=== PATIENT | male | born 1985 | race Caucasian/White ===

== ENCOUNTER 2019-11-04 05:41 | Emergency (ER) | payer BC ==
[~2019-11-04] VITALS: Ht 185.4 cm; Wt 99.8 kg
[~2019-11-04 05:41] MED LIST: CEPHALEXIN500 M1 PO; Orphenadrine C100 MG PO; PERCOCET 325 MG1 TA2 PO; PREDNISONE50 MG PO; TRAMADOL HCL50 MG PO
[2019-11-04 06:15] LABS: BASO # 0.1 10*3/uL (0.0-0.1); EOS # 0.2 10*3/uL (0.0-0.4); EOS % 2.7 % (1.0-4.0); HEMATOCRIT 45.2 % (42.0-52.0); LYMPH # 2.2 10*3/uL (1.3-4.4); LYMPH % 30.3 % (27.0-41.0); MEAN CELL VOLUME 89.5 fl (80.0-94.0); MEAN CORPUSCULAR HGB 30.3 pg (27.0-31.0); MEAN CORPUSCULAR HGB CONC 33.8 g/dl (33.0-37.0); MONO # 0.5 10*3/uL (0.1-1.0); MONO % 6.4 % (3.0-9.0); NEUT # 4.4 10*3/uL (2.3-7.9); NEUT % 59.3 % (47.0-73.0); PLATELET COUNT AUTOMATED 253 10*3/uL (130-400); RED BLOOD COUNT 5.05 10*6/uL (4.50-5.90); RED CELL DISTRI WIDTH 12.6 % (0-14.5); WHITE BLOOD COUNT 7.3 10*3/uL (4.8-10.8)
[2019-11-04 06:29] LABS: ALBUMIN 4.1 gm/dl (3.1-4.5); ALKALINE PHOSPHATASE 73 U/L (45-117); BUN 18 mg/dl (7-24); CHLORIDE 103 mmol/L (98-107); CREATININE 1.25 mg/dL (0.70-1.30); SGOT/AST 15 IU/L (3-35); SGPT/ALT 31 U/L (12-78); SODIUM 137 mmol/L (136-145); TOTAL PROTEIN 7.9 gm/dL (6.4-8.2)
[2019-11-04 08:01] LABS: BILIRUBIN NEGATIVE (NEGATIVE); BLOOD 3+ (NEGATIVE); CLARITY SL CLOUDY (CLEAR); COLOR YELLOW (YELLOW); GLUCOSE NEGATIVE (NEGATIVE); KETONE NEGATIVE (NEGATIVE); SPECIFIC GRAVITY 1.015 (1.005-1.030)
[2019-11-04 08:02] LABS: LEUKO ESTERASE TRACE (NEGATIVE); NITRITE NEGATIVE (NEGATIVE); RBC TNTC rbc/hpf (0-2); UROBILINOGEN 0.2 E.U./dl (0.2-1.0)
[2019-11-04] MEDS ORDERED: TYLENOL325 M1 PO (08:14)
[2019-11-04] MEDS ORDERED: NAPROXEN250 MG PO (08:14)
[2019-11-04] MEDS ORDERED: FLOMAX0.4 MG PO (08:14)
[2019-11-04] MEDS ORDERED: REGLAN10 M1 PO (08:14)
== END 2019-11-04 08:54 | disposition home or self-care (01) ==
LOC: ED 05:41
PROVIDERS: Emergency Medicine
DX: N13.2 Hydronephrosis with renal and ureteral calculous obstruction (principal); N50.811 Right testicular pain; N50.82 Scrotal pain

== ENCOUNTER 2021-11-24 17:38 | Emergency (ER) | payer BC ==
[~2021-11-24] VITALS: Ht 185.4 cm; Wt 90.7 kg
[~2021-11-24 17:38] MED LIST changes: +FLOMAX0.4 MG PO; +NAPROXEN250 MG PO; +REGLAN10 M1 PO; +TYLENOL325 M1 PO
[2021-11-24] MEDS ORDERED: CEPHALEXIN500 M1 PO (18:36)
== END 2021-11-24 18:46 | disposition home or self-care (01) ==
LOC: ED 17:38
DX: S60.551A Superficial foreign body of right hand, initial encounter (principal); W45.8XXA Other foreign body or object entering through skin, initial encounter; Y93.89 Activity, other specified; Y92.89 Other specified places as the place of occurrence of the external cause; Y99.8 Other external cause status

== ENCOUNTER 2024-12-15 09:23 | Emergency (ER) | payer BC ==
[~2024-12-15] VITALS: Ht 185.4 cm; Wt 90.7 kg
== END 2024-12-15 11:52 | disposition home or self-care (01) ==
LOC: ED 09:23
DX: N43.3 Hydrocele, unspecified (principal); N50.812 Left testicular pain; Z79.899 Other long term (current) drug therapy